=== PATIENT | female | born 1985 | race Caucasian/White ===

== ENCOUNTER 2021-04-13 08:00 | Outpatient (CLI) | payer OTHER | END 2021-04-13 23:59 | LOC: LAB.N 08:00 | PROVIDERS: ATTEND Physician Assistant | DX: R53.83 Other fatigue (principal); R53.81 Other malaise; Z20.822 Contact with and (suspected) exposure to COVID-19 ==

== ENCOUNTER 2021-08-12 13:37 | Emergency (ER) | payer MEDICAID, OTHER ==
[2021-08-12 13:49] VITALS: BP 140/98
--- NOTE | 2021-08-12 13:52 | ED Physician Documentation ---
PD HPI LOWER EXT INJURY - Stated complaint Stated Complaint: GLF RT ANKLE INJ - Chief complaint Chief Complaint: Trauma Ext - History obtained from History obtained from: Patient - History of Present Illness PD HPI LOW EXT INJURY LOCATION: Right, Ankle Type of injury: Twist (She is walking up steps into her house and the wind blew the door against her causing her to lose balance with the twisting of the ankle and fall. She felt a pop. Pain and swelling initially and unable to bear weight.) Where injury occurred: Home Timing - onset: How many hours ago (1) Timing - duration: Hours (1) Worsened by: Moving, Palpating (mostly laterally), Other (attempted walking on it.) Associated symptoms: Swelling. No: Weakness, Numbness Similar symptoms before: Has not had sx before Recently seen: Not recently seen Review of Systems Skin: denies: Abrasion (s), Laceration (s) Musculoskeletal: reports: Joint swelling (just right ankle) Neurologic: denies: Focal weakness, Numbness PD PAST MEDICAL HISTORY - Past Medical History Musculoskeletal: None - Present Medications Home Medications: Ambulatory Orders Medication Instructions Recorded Confirmed Fluoxetine HCl [Prozac] 20 mg PO DAILY 08/12/21 08/12/21 Mirtazapine 15 mg PO DAILY 08/12/21 08/12/21 - Allergies Allergies/Adverse Reactions: Allergies Allergy/AdvReac Type Severity Reaction Status Date / Time codeine Allergy Hives Verified 08/12/21 13:46 PD ED PE NORMAL - Vitals Vital signs reviewed: Yes - General General: Alert and oriented X 3, Well developed/nourished - Derm Derm: Normal color, Warm and dry - Extremities Extremities: Other (The right ankle with swelling and tenderness mostly laterally but also some on the anterior portion. Achilles is firm and nontender. Medial minimal tenderness. No gross instability on stress testing though limited due to pain. Normal color and capillary refill in the toes. Normal sensation.) - Neuro Neuro: Alert and oriented X 3, No motor deficit, No sensory deficit Results - Vitals Vitals: Vital Signs - 24 hr 08/12/21 13:47 Temperature 37.0 C Heart Rate 82 Respiratory 18 Rate Blood Pressure 140/98 H O2 Saturation 100 Oxygen O2 Source Room air - Rads (name of study) right ankle Radiology: Prelim report reviewed (No fractures.), See rad report PD MEDICAL DECISION MAKING - ED course Complexity details: reviewed results, considered differential, d/w patient Departure - Departure Disposition: 01 Home, Self Care Clinical Impression: Ankle sprain Qualifiers: Encounter type: initial encounter Involved ligament of ankle: unspecified ligament Laterality: right Qualified Code(s): S93.401A - Sprain of unspecified ligament of right ankle, initial encounter Condition: Stable Record reviewed to determine appropriate education?: Yes Instructions: ED Sprain Ankle Comments: Use the cast boot to help stabilize the ankle ligaments when up and around for the next 1 to 2 weeks until really healed well. Ice elevate and rest the ankle often to reduce swelling today and tomorrow. Then minimal prolonged walking or standing for another 4 to 5 days. I would anticipate improvement in the swelling over a few days but the sprains may take 2 to 3 weeks to heal up fully. Continue with the ankle brace until fully healed. Ibuprofen 3 times daily if needed for pains. Add Tylenol every 4-6 hours as needed as well. Forms: Activity restrictions
[2021-08-12] MEDS ORDERED: IBUPROFEN 600 MG TABLET PO STA (14:03)
[2021-08-12] MEDS ORDERED: ACETAMINOPHEN 325 MG TABLET PO STA (14:03)
--- NOTE | 2021-08-12 14:15 | XRAY Report ---
PROCEDURE: Ankle 3 View RT INDICATIONS: glf; ankle pain TECHNIQUE: 3 views of the ankle were acquired. COMPARISON: None FINDINGS: Bones: No fractures or dislocations. Ankle mortise is normally aligned. Small plantar calcaneal en thesophyte is seen. No suspicious bony lesions. Soft tissues: Significant lateral ankle soft tissue swelling is noted. No tibiotalar joint effusion. Achilles tendon appears normal. IMPRESSION: No gross acute ankle fracture or dislocation. Lateral ankle soft tissue swelling. Intact ankle mortise. Reviewed by: Graham Benson MD on 08/12/2021 2:13 PM PDT Approved by: Graham Benson MD on 08/12/2021 2:13 PM PDT Station ID: [id number]
== END 2021-08-12 15:06 | disposition home or self-care (01) ==
LOC: ED 13:37
DX: S93.401A Sprain of unspecified ligament of right ankle, initial encounter (principal); X50.1XXA Overexertion from prolonged static or awkward postures, initial encounter; Y93.01 Activity, walking, marching and hiking; Y92.009 Unspecified place in unspecified non-institutional (private) residence as the place of occurrence of the external cause
CPT/HCPCS: 73610; 99282; 99283; A9270